=== PATIENT | male | born 1970 | race Caucasian/White ===

== ENCOUNTER 2021-01-28 11:38 | Emergency (ER) | payer OTHER ==
[~2021-01-28 11:38] MED LIST: OMEPRAZOLE20 MG PO; ONDANSETRON ODT4 MG PO
[2021-01-28] MEDS ORDERED: TESSALON PERLE100 MG PO (14:17)
[2021-01-28] MEDS ORDERED: TYLENOL EXTRA500 MG PO (14:17)
== END 2021-01-28 14:50 | disposition home or self-care (01) ==
LOC: ER1 11:38
DX: U07.1 COVID-19 (principal); I10 Essential (primary) hypertension
CPT/HCPCS: 0240U; 71045; 99283

== ENCOUNTER → 2021-11-10 | Outpatient (CLI) | payer OTHER ==
[~2021-11-10] MED LIST changes: +ADIPEX-P37.5 M1 PO; +CYANOCOBAL1000 MCG/1 INJ; +FINASTERIDE1 MG PO; +FLOMAX 0.4 MG0.4 MG PO; +HYDROCODON-ACE1 EAC6 PO; +LOPRESSOR100 MG PO; +MELOXICAM15 MG PO; +NEURONTIN800 MG PO; +OMEPRAZOLE40 MG PO; +RA CALCIUM 6001 EAC1 PO; +TESSALON PERLE100 MG PO; +TYLENOL EXTRA500 MG PO; +multivitamin
[2021-11-10 11:37] LABS: HEMOGLOBIN 14.1 gm/dl (14.0-17.5); RED BLOOD COUNT 4.59 M/UL (4.20-5.50); WHITE BLOOD COUNT 6.5 K/UL (4.5-11.0)
[2021-11-10 11:52] LABS: BUN/CREATININE RATIO 21 (0-10)
== END ==
LOC: OPSV2 09:51 → EDSTATUS 10:00 → OPSV2 10:00
PROVIDERS: Orthopaedic Surgery
DX: Z01.818 Encounter for other preprocedural examination (principal); M16.11 Unilateral primary osteoarthritis, right hip
CPT/HCPCS: 36415; 71046; 80048; 85027; 93005

== ENCOUNTER → 2021-11-23 | Day surgery (SDC) | payer OTHER ==
[~2021-11-23] VITALS: Ht 177.8 cm; Wt 90.7 kg
[~2021-11-23] MED LIST changes: +CYCLOBENZAPRINE10 MG PO; +ELIQUIS2.5 MG PO; +ENDOCET 10-3251 EACH PO; +ZOFRAN 4 MG TAB4 MG PO
== END | disposition home or self-care (01) ==
LOC: OR 06:06 → EDSTATUS 07:30 → OR 07:30
DX: M16.11 Unilateral primary osteoarthritis, right hip (principal); M87.851 Other osteonecrosis, right femur; I10 Essential (primary) hypertension; E78.5 Hyperlipidemia, unspecified; K21.9 Gastro-esophageal reflux disease without esophagitis; F17.220 Nicotine dependence, chewing tobacco, uncomplicated; Z79.899 Other long term (current) drug therapy
CPT/HCPCS: 73501; 73502; 76000; 86850; 86900; 86901; 97110; 97162; 97165; 97530; C1776; J0690; J1885; J2001; J2250; J2274; J2405; J2704; J3370; J7030; J7050; J7120